=== PATIENT | male | born 1965 | race Caucasian/White ===

== ENCOUNTER 2016-04-29 15:38 | Emergency (ER) | payer SELFPAY ==
[~2016-04-29] VITALS: Ht 182.9 cm; Wt 76.0 kg
[2016-04-29 15:39] VITALS: BP 105/74; PULSE 77; RESP 16; TEMP 98.2; O2SAT 99
[2016-04-29] MEDS ORDERED: BACL10TA PO (15:50)
[2016-04-29] MEDS ORDERED: NAPR550T3 PO (16:02)
[2016-04-29] MEDS ORDERED: MAGICPED SWISH-SPIT (16:02)
[2016-04-29] MEDS ORDERED: PENI500T PO (16:02)
--- NOTE | 2016-04-29 16:07 | PD ---
HPI Chief Complaint: Oral / Dental Pain or Problem Time Seen by Provider: 16:02 Travel History International Travel<30 days: No Contact w/Intl Traveler<30days: No Traveled to known affect area: No History of Present Illness HPI Patient is a 50-year-old male presenting with dental pain. Present for 3 days. He has chronic problem with teeth in the upper left. He denies any trauma or injury. He states that pieces break up periodically, last time was several months prior. He had a bridge in the area which fell out several years ago. Reports some mild swelling denies bleeding or discharge. Denies fever, sore throat, masses or induration of the neck or mouth or jaw. He has used NSAIDs and Tylenol with minimal relief. He has not seen a dentist. PFSH Past Medical History Medical History: Denies Significant Hx Diminished Hearing: No Tetanus Vaccination: < 5 Years Past Surgical History Surgical History: No Previous Surgery Social History Alcohol Use: No Tobacco Use: Yes (1 PPD) Substance Use: No Allergies-Medications (Allergen,Severity, Reaction): Coded Allergies: Bactrim (Verified Allergy, Intermediate, RASH, 04/29/16) Reported Meds & Prescriptions Reported Meds & Active Scripts Active Reported Baclofen 10 Mg Tab Unknown Dose PO Q8HR PRN Review of Systems General / Constitutional: No: Fever HENT: Positive: Dental Difficulties, No: Neck Stiffness, Neck Pain, Masses, Gingival Bleeding, Earache Respiratory: No: Stridor Hematologic/Lymphatic: No: Lymph Node Enlargement Physical Exam Narrative GENERAL: Well-developed and well-nourished adult male in no acute distress. SKIN: Warm and dry. Good turgor without tenting. HEAD: Normocephalic and atraumatic. EYES: PERRL bilaterally, 5mm. EOMI bilaterally. No injection or icterus present. No proptosis. Lids without edema or erythema. ENT: Overall poor oral dentition with severe gingival recession. Tooth #12 is absent. Tooth #11 and 13 have multiple caries and significant amounts of tooth missing. No appreciable gingival erythema or palatal changes. Teeth are tender to percussion. There is some mild induration of the gingiva at the base of teeth 11 and 13 without fluctuance. No bleeding or discharge. No buccal or sublingual masses. Nasal mucosa pink and moist without discharge, septum intact and midline. Buccal mucosa pink and moist. Oropharynx free of erythema, tonsillar hypertrophy, masses, swelling, asymmetry and exudates. Uvula midline and airway patent. NECK: Supple, no meningeal signs. No masses or induration palpated. Trachea midline, no JVD. No cervical or facial lymphadenopathy. CARDIOVASCULAR: Regular rate and rhythm without murmurs, rubs, clicks or gallops. RESPIRATORY: Clear to auscultation bilaterally with symmetrical rise and fall, no distress or use of accessory muscles. NEUROLOGIC: CN II-XII grossly intact. Awake and alert. Motor grossly within normal limits. Normal speech. PSYCHIATRIC: Appropriate mood and affect; insight and judgment normal. Data Data Last Documented VS Vital Signs Date Time Temp Pulse Resp B/P Pulse Ox O2 Delivery O2 Flow Rate FiO2 04/29/16 15:39 98.2 77 16 105/74 99 MDM Medical Decision Making Medical Screen Exam Complete: Yes Emergency Medical Condition: Yes Differential Diagnosis Caries versus Periapical abscess versus cellulitis versus Tooth Fracture vs less likely Ludwigs Angina Narrative Course Patient is a 50-year-old male with likely very early periapical abscess formation. He is afebrile and nontoxic-appearing. Patient will be given Pen- Vee K for treatment of likely dental abscess and given shifting for naproxen and Magic mouthwash to help with comfort. Recommend to patient that he see a dentist STEPHANIE. See discharge paperwork for further instructions. The plan was discussed with the patient who acknowledged their understanding and agreement. Reinforced the follow-up with primary care is critically important. Patient instructed on emergent conditions that should prompt return to ED. Diagnosis Primary Impression: Dental abscess Patient Instructions: Dental Abscess (ED), General Instructions Departure Forms: Tests/Procedures Additional Instructions: Take medication as directed Use salt water gargles every 1-2 hours as needed for pain and swelling Apply ice packs hourly as needed to help with swelling and pain Schedule with dentist STEPHANIE for definitive treatment Return to the ED for any acute worsening of symptoms Med/Other Pt SpecificInfo: Prescription(s) given Scripts Uiycpirsyucodko-Lntiebfge-Ekp-Alum-Simeth Liq (Magic Mouthwash Pediatric/Adult Liq)60 Ml Susp5-10 Ml SWISH-SPIT ACHS PRN (PAIN SCALE 5 TO 10) #120 ML Please makes 40 mL each: 2% viscous lidocaine, liquid diphenhydramine and Maalox liquid Prov:Aishwarya Kong MD 04/29/16 Naproxen Sodium DS 550 Mg [id number] Mg PO BID #10 TAB Prov:Aishwarya Kong MD 04/29/16 Penicillin V Potassium 500 Mg [id number] Mg PO Q6H 10 Days Prov:Aishwarya Kong MD 04/29/16 Disposition: 01 DISCHARGE HOME Condition: Stable James Kelley III Apr 29, 2016 16:07
== END 2016-04-29 16:19 | disposition home or self-care (01) ==
LOC: PHEFT 15:38
DX: K04.7 Periapical abscess without sinus (principal); F17.200 Nicotine dependence, unspecified, uncomplicated
CPT/HCPCS: 99282